=== PATIENT | female | born 1980 | race Asian ===

== ENCOUNTER 2022-08-23 10:59 | Inpatient (IN) | payer OTHER ==
[~2022-08-23] VITALS: Ht 154.9 cm; Wt 64.4 kg
[~2022-08-23 10:59] MED LIST: PRENACARE TABL1 EACH PO
[2022-09-01] MEDS ORDERED: IRON325 MG PO (08:41)
== END 2022-09-04 13:14 | disposition home or self-care (01) | DRG 788 ==
LOC: OB/GYN 09-01 08:00 → O/R 09-01 08:00 → OB/GYN 09-01 09:45
PROVIDERS: ADMIT Obstetrics & Gynecology Maternal & Fetal Medicine; ATTEND Obstetrics & Gynecology Maternal & Fetal Medicine
PROC: 4A1HXCZ Monitoring of Products of Conception, Cardiac Rate, External Approach (ICD-10-PCS; 2022-09-01)
PROC: 10D00Z1 Extraction of Products of Conception, Low, Open Approach (ICD-10-PCS; principal; 2022-09-01 10:45)
DX: O34.211 Maternal care for low transverse scar from previous cesarean delivery (principal); Z20.822 Contact with and (suspected) exposure to COVID-19; Z37.0 Single live birth; Z3A.37 37 weeks gestation of pregnancy

== ENCOUNTER 2022-08-31 10:11 | Outpatient (CLI) | payer OTHER ==
[2022-09-01] MEDS ORDERED: IRON325 MG PO (08:41)
== END 2022-08-31 12:05 | disposition home or self-care (01) ==
LOC: NST 10:11
PROVIDERS: ATTEND Obstetrics & Gynecology Gynecology
DX: Z34.83 Encounter for supervision of other normal pregnancy, third trimester (principal)

== ENCOUNTER → 2022-09-01 08:00 | Outpatient (CLI) | payer OTHER ==
[~2022-09-01 08:00] MED LIST changes: +IRON325 MG PO
== END | disposition home or self-care (01) ==
LOC: LAB 08:00
PROVIDERS: ATTEND Obstetrics & Gynecology Maternal & Fetal Medicine
DX: Z20.822 Contact with and (suspected) exposure to COVID-19 (principal)

== ENCOUNTER 2024-03-07 07:49 | Day surgery (SDC) | payer OTHER ==
[2024-03-06 16:34] LABS: HEMATOCRIT 40.8 % (36.0-45.00); HEMOGLOBIN 13.9 g/dL (12.0-15.00); MEAN CELL VOLUME 81.1 fL (80.00-100.00); MEAN CORPUSCULAR HEMOGLOBIN 27.7 pg (27.00-32.0); MEAN CORPUSCULAR HGB CONC 34.1 g/dl (32.0-36.0); PLATELET COUNT 364 K/uL (150-450); RED BLOOD COUNT 5.04 M/uL (4.00-6.00); RED CELL DISTRIBUTION WIDTH 15.6 % (11.5-14.5)
[2024-03-06 17:04] LABS: INR 0.98; PARTIAL THROMBOPLASTIN TIME 30.5 SECONDS (22.0-34.0); PROTHROMBIN TIME 10.7 SECONDS (9.0-11.5)
[2024-03-06 17:12] LABS: ALBUMIN 3.7 gm/dL (3.4-5.0); BILIRUBIN TOTAL 0.31 mg/dL (0.3-1.2); CALCIUM 9.6 mg/dL (8.5-10.1); CREATININE SERUM 0.56 mg/dL (0.55-1.02); GFR 118.72; GLOBULINA 4.3 G/DL (2.4-3.5); POTASSIUM 4.4 mEq/L (3.5-5.1)
[2024-03-07] MEDS ORDERED: PROMETHAZINE HCL 50 MG/ML AMPUL IM ONE (10:30)
[2024-03-07] MEDS ORDERED: MORPHINE SULFATE 4 MG/ML VIAL IV PRN (10:30)
[2024-03-07] MEDS ORDERED: POVIDONE-IODINE SCRUB 118 ML BOTT TOP ONE (11:00)
[2024-03-07] MEDS ORDERED: CEFAZOLIN SODIUM 1,000 MG VIAL IV ONE (14:15)
== END 2024-03-07 15:30 | disposition home or self-care (01) ==
LOC: CIR.AMB 07:49
PROVIDERS: ATTEND Obstetrics & Gynecology Maternal & Fetal Medicine
DX: O02.1 Missed abortion (principal); Z91.013 Allergy to seafood; Z3A.01 Less than 8 weeks gestation of pregnancy